=== PATIENT | female | born 1995 | race American Indian/Alaskan Native ===

== ENCOUNTER 2018-11-19 14:21 | Emergency (ER) | payer OTHER ==
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
[2018-11-19 14:35] VITALS: BP 128/77
[2018-11-19] MEDS ORDERED: IBUPROFEN PO ONE (15:06)
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
== END 2018-11-19 18:50 | disposition home or self-care (01) ==
LOC: ED 14:21
DX: S39.012A Strain of muscle, fascia and tendon of lower back, initial encounter (principal); Z90.89 Acquired absence of other organs; Z79.899 Other long term (current) drug therapy; V89.2XXA Person injured in unspecified motor-vehicle accident, traffic, initial encounter; Y93.89 Activity, other specified; Y92.410 Unspecified street and highway as the place of occurrence of the external cause; Y99.8 Other external cause status
CPT/HCPCS: 36415; 72100; 84703